=== PATIENT | female | born 1960 | race Caucasian/White ===

== ENCOUNTER → 2024-04-06 06:29 | Day surgery (SDC) | payer MEDICARE, SELFPAY | LOC: GI 06:29 | PROVIDERS: ATTENDING PHYSICIAN Internal Medicine Gastroenterology; FAMILY PHYSICIAN Family Medicine | DX: Z12.11 Encounter for screening for malignant neoplasm of colon (principal); K57.30 Diverticulosis of large intestine without perforation or abscess without bleeding; Z86.010 Personal history of colon polyps; D12.2 Benign neoplasm of ascending colon; K62.1 Rectal polyp | CPT/HCPCS: 45385; 45381; 45380; 88305 ==

== ENCOUNTER → 2024-10-28 13:26 | Outpatient (REF) | payer MEDICARE, SELFPAY | LOC: SDSPAT 13:26 | PROVIDERS: ATTENDING PHYSICIAN Obstetrics & Gynecology Gynecologic Oncology; FAMILY PHYSICIAN Family Medicine | DX: N89.1 Moderate vaginal dysplasia (principal) | CPT/HCPCS: 36415; 86850; 86900; 86901 ==

== ENCOUNTER 2024-11-10 06:16 | Day surgery (SDC) | payer MEDICARE, SELFPAY ==
[2024-10-28 14:07] VITALS: BMI 21.3
--- NOTE | 2024-11-08 21:04 | W.CON.GYNONC ---
Chief Complaint
-
cervical/vaginal dysplasia
History of Present Illness
64�year�old �0�0�2 white female presenting for evaluation of recently obtained abnormal Pap smear. Patient's history
significant for vulvectomy for KIM back in 2013. She is under care of Dr. Mayberry from a gynecologic perspective
Pap smear January 20, 2021 unsatisfactory for evaluation
Pap smear March 24, 2022 negative, atrophic changes are present. High risk HPV test was positive, positive for 18 and 45
Colposcopy dated April 14iopsies of the cervix were performed, revealing SAHLEY�1 at 7:00
Pap smear September 03, 2023 atypical squamous cells of undetermined significance, high risk HPV positive
Colposcopy September 26, 2023 shows detached fragments of low�grade squamous intraepithelial lesion at 7:00 as well as 3:00 and
11:00. ECC shows no diagnostic dysplasia.
Cone biopsy dated October 30, 2003 shows benign ectocervical glandular mucosa with benign squamous epithelium. ECC no tissue
identified.
Pap smear May 13, 2024 is low�grade squamous intraepithelial lesion, a higher grade lesion cannot be ruled out, obscuring
inflammatory cells and blood material is present. HPV 18 and 45 were positive.
Previous�biopsies,�right�vagina�shows�high�grade�squamous�intraepithelial�lesion�KIM�2,�left�vaginal�biopsies�benign�squamous mucosa.
MRI�of�the�cervix�and�uterus�was�performed,�reveals�uterus�to�be�4.3�cm�in�length,�normal�signal�intensity,�endometrial�stripe�is�not
seen,�small�focus�of�signal�dropout�in�the�right�posterior�aspect�of�the�uterus�consistent�with�calcification,�there�is�no�masses�or
abnormal�foci�throughout�vagina.�There�is�no�appreciable�masses�otherwise,�there�is�minimal�sigmoid�diverticulosis,�bladder�is moderately�distended�and�unremarkable.�There�is�no�concerning�lymph�nodes
Allergies No�Known�Drug�Allergies
Medications
Effexor�XR�37.5�mg capsule,extended�release 1�p.o.�q.�day
estradiol�0.01%�(0.1�mg/gram) vaginal�cream apply�0.5�gm�per�vagina�3�times per�week�at�bedtime�(M/W/F)
Past�Medical�History Depression� Surgical�History Vulvectomy�2013 Health�Maintenance�and�Significant�Events No�on�going�treatment�events�have�been�entered�for�this�patient. Social�History Former�Smoker.�Year�Quit�2023.
Current�daily�alcohol�user. Denies�any�illicit�drug�use. Occupational�Status:�Former���Retired. Patient�has�not�had�any�occupational�exposure. Marital�Status:�Patient�is� Gynecological�History
Age�at�Menarche�11�years.�Age�at�menopause:�45�years.
Medical History
Allergies
Allergies reflect when allergies were last updated in [facility].
No Known Allergies Allergy (Verified 10/29/24 13:32)
Physical Exam
Physical Exam
Pelvic Examination:
External normal labia, scar present right labia menorrhagia, normal urethra, anus.
Vagina: Normal mucosa. Atrophic changes are present
cervix: Cervix appears flush with the apex of the vagina secondary to prior procedure and scarring. Os is closed, there is a 1 x 1 cm
area of erythema just above the scarred os suspected to be granulation tissue., no discharge.
uterus: normal size.
Adnexa: No pelvic mass.
RVE: no masses or nodularity
General:�Well�developed,�well�nourished�patient.�In�no�acute�distress. Neck:�No�thyromegaly.�No�cervical�lymphadenopathy. Lungs:�Clear�to�auscultation.�Good�air�movement�bilaterally. Cardiac:�Regular�rate.�Regular�rhythm.�No�murmurs�appreciated.
Right�Breast:�No�masses�or�dimpling.�No�nipple�discharge. Left�Breast:�No�masses�or�dimpling.�No�nipple�discharge. Abdomen:�Abdomen�is�soft.�Non�tender�to�palpation.�Non�distended. Extremities:�No�edema.
Hematologic/Lymphatic:�No�palpable�lymphadenopathy. Musculoskeletal:�Normal�range�of�motion.�Strength�and�Tone�are�normal. Skin:Non�jaundiced.�No�petechia.�No�purpura. Neurologic:�Speech�is�fluent.�Normal�gait�and�station.�Cranial�nerves�intact.
Impression / Plan
-
This patient has a prior history of cervical dysplasia that was diagnosed and treated with cryoablation. She has also had history of
vulvar intraepithelial neoplasia. More recently over the last 3 to 4 years she has persistent dysplasia of upper vagina or cervix with
high risk HPV positive status 18 and 45. Unfortunately persistent high risk HPV infection such as this can often result in
development of invasive cancer of the cervix. My suspicion was that the more recent Pap smears that have been performed more
likely represent abnormalities involving upper vagina rather than cervix itself.
We now have confirmation that there is evidence of moderate dysplasia involving right vaginal fornix.
Options of management include observation versus CO2 laser ablation of the lesion, and option including total hysterectomy and
upper vaginectomy can also be offered to the patient. We discussed pros and cons of these various approaches.
The patient is leaning towards CO2 laser ablation vs CUSA ablation.
It is reassuring to see that the MRI does not show any abnormal lesions in she is certainly does not have any evidence of obvious
cancer throughout the cervix
[2024-11-10] VITALS (10 sets, daily range): BP systolic 101–126; BP diastolic 61–74; BMI 21.2
[2024-11-10] MEDS: NORMOSOL-R/PLASMALYTE-A 1000 IV (09:20)
[2024-11-10] MEDS: CELEBREX 200 MG PO (09:24)
[2024-11-10] MEDS: NEURONTIN 300 MG PO (09:24)
[2024-11-10] MEDS: TYLENOL 1000 MG PO (09:24)
[2024-11-10] MEDS: HEPARIN 5000 UNITS SC (10:41)
--- NOTE | 2024-11-10 12:16 | OR.RPT ---
Operative Report
Operative Report
Date of procedure: November 10, 2024
Preoperative diagnosis: Vaginal intraepithelial neoplasia 2
Postoperative diagnosis the same
Procedure: Colposcopy of cervix and vagina with extensive CO2 laser vaporization of upper vagina and ectocervix
Surgeon:Anthony Bowser MD
Assist: Dario Chaudhry
Anesthesia: General LMA intubation
Complication: None
Blood loss: None
Procedure in detail. This patient was brought to the operating room and placed in supine position, general anesthesia was administered and LMA intubation was completed. She was positioned in lithotomy position using yellowfin stirrups, hair
involving the perineum and external genitalia was clipped. The patient was prepped on the perineum upper thighs lower abdomen and vagina. The patient was draped. Timeout procedure was completed and she had received antibiotics. Following this
coated speculum was placed in the vagina, colposcopy was performed using Lugol's solution. Several islands of lack of uptake of iodine was noted involving anterior cervix and anterior fornix right and left fornices as well as smaller islands in the
posterior fornix. I used a CO2 laser handpiece, and inside fiber type, at 8 W with a diameter of approximately 4 mm to ablate the entire ectocervix anterior and posterior as well as right and left fornices of the vagina. I removed some of the scar
tissue and reexamined the area and some additional areas that were missed were also ablated. We did not encounter any evidence of bleeding. There is no obvious high-grade dysplasia or invasive cancer. The procedure was terminated. Counts of laps
instruments and needle was correct x 2. I was present and scrubbed for entire procedure as dictated above.
== END 2024-11-10 13:10 | disposition home or self-care (01) ==
LOC: SDS 06:16
PROVIDERS: ATTENDING PHYSICIAN Obstetrics & Gynecology Gynecologic Oncology
DX: N89.1 Moderate vaginal dysplasia (principal)
CPT/HCPCS: 57061; 57454